=== PATIENT | female | born 1950 | race Caucasian/White ===

== ENCOUNTER → 2019-01-09 | Outpatient (CLI) | payer OTHER ==
[~2019-01-09] VITALS: Ht 147.3 cm; Wt 77.1 kg
[~2019-01-09] MED LIST: ALLOPURINOL 10100 M1 PO; AMOXICILLIN 50500 MG PO; CLARITIN10 MG PO; CONGESTI EAC PO; COQ-10100 MG PO; FISH OIL 1,001000 M2 PO; GARLIC1 EACH PO; LIPITOR10 MG PO; LISINOPRIL-HCT1 EACH PO; MUCINEX TA600 MG/TA2 PO; MULTI VITAMIN1 EACH PO; OMEPRAZOLE40 MG PO; PROAIR HFA8.5 GM INH
--- NOTE | 2019-01-10 13:07 | PATH ---
[facility] [address] [place] [address] PATHOLOGY RPT PROCEDURE Name: BISHOPNOAM DECEMBER Room #: REG Pilar M.Ines.#: [id number] ������������������ Admission: 01/09/19 ������������������ Date of : 52 Discharge: Report #: [id number] Path Case #: [id number] [facility] Accession Number: [id number] . 01 Material submitted: . cecum - POLYLP AT CECUM . 01 Clinical history: . Pre-OP DX: Hx: Polyps Post-OP DX: Colon polyp, diverticulosis, hemorrhoids . 02 Diagnosis: Polyp, at cecum, endoscopic biopsy: - Tubular adenoma. - Negative for high-grade dysplasia. (IUV:pit 01/10/2019) QTP/01/10/2019 . 02 Electronically signed: . Porsche Sepulveda MD, Pathologist NPI- [id number] . 01 Gross description: . Received in formalin labeled "Bishop, Noam, polyp at cecum," is a single segment of payne soft tissue measuring 0.8 cm in maximum dimension. The specimen is entirely submitted in cassette A1. (TSD; 01/09/2019) TOB/TOB . 02 Pathologist provided ICD-10: D12.0 . 02 CPT . 737959 Specimen Comment: A courtesy copy of this report has been sent to Specimen Comment: [phone]. Specimen Comment: Report sent to Performed at: [address] [id number] MD Aric Maria MD Phone: [phone] Performed at: [address] [id number] MD Porsche Sepulveda MD Phone: [phone]
--- NOTE | 2019-01-11 11:42 | P ---
[facility] [place] [address] PROCEDURE REPORT Name: NOAM TREJO Room #: REG [facility].#: [id number] Admission: 01/09/19 ������������������ Attend Phys: Joe Flanagan MD Discharge: ������������������ Date of : 52 Report #: [id number] THIS REPORT FOR: //name// CC: Joe Irvin MD DATE OF SERVICE: 01/09/2019 BRIEF HISTORY: The patient is a 68-year-old woman who presents for high-risk screening colonoscopy due to history of colon adenomas in the past. PREOPERATIVE DIAGNOSIS: High-risk screening colonoscopy. POSTOPERATIVE DIAGNOSES: 1. A 5-mm flat cecal polyp. 2. Moderately severe diverticulosis coli, left colon. 3. Small internal hemorrhoids. MEDICATIONS: Deep sedation with propofol per anesthesia. SPECIMEN: Cecal polyp. ESTIMATED BLOOD LOSS: 3 mL. PROCEDURE: Colonoscopy to cecum and terminal ileum with snare polypectomy. FINDINGS: Prior to propofol sedation, procedure of colonoscopy was reviewed with the patient as well as potential risks, benefits and complications. She indicates she understands and desires to proceed. DESCRIPTION OF PROCEDURE: With the patient in left lateral decubitus position, digital examination was completed, which revealed no abnormalities. Subsequently, the Olympus video colonoscope was inserted in the rectum, advanced under direct vision to the cecum. This was done with minimal difficulty. The cecum was identified by the ileocecal valve and the appendiceal orifice. I was also able to visualize the distal segment of the terminal ileum, which was inspected and noted to be unremarkable. At that point, the scope was slowly withdrawn and careful circumferential views obtained including retroflexing the scope in the ascending colon. Upon slow withdrawal of the scope, the prep was noted to be good. The mucosa was within normal limits, normal vascular pattern, normal light reflex. As we withdrew the scope, she was found to have a 5-mm flat polyp in the cecum that was removed by cold snare polypectomy and recovered. The scope was further withdrawn and no additional neoplastic lesions were seen on this examination. However, in the sigmoid colon, there was moderately severe diverticular disease without endoscopic evidence of [facility] [address] [place] [address] PROCEDURE REPORT Name: NOAM TREJO DECEMBER [facility] [id number] Admission: 01/09/19 ������������������ Attend Phys: Joe Flanagan MD Discharge: ������������������ Date of : 52 Report #: [id number] diverticulitis. The scope was withdrawn in the rectum. No abnormalities were seen until upon retroflexion, small internal hemorrhoids were seen. The scope was withdrawn. The patient tolerated the procedure well. CONDITION OF THE PATIENT UPON DISCHARGE: Following procedure, the patient drowsy, aroused, conversant and will be discharged home when fully ambulatory. INSTRUCTIONS TO THE PATIENT AND FAMILY AT THE TIME OF DISCHARGE: We will follow up on the path of the polyp. If this is an adenoma, which I suspect it is, she should return. If this is an adenoma as suspected, she should return for followup colon exam in five years. If it is a hyperplastic polyp, then she should return in 10 years. She will return to the care of Dr. Max Irvin. Last colonoscopy was approximately five years ago. Withdrawal time from the cecum was 11 minutes 5 seconds. The patient reports she got up off the sofa last evening when she was doing her prep. She somehow injured her ankle. It is not entirely clear what she did. She said her foot was asleep and when she got up, she fell. The ankle is noted to be swollen. This is the right ankle. We will reach out to Dr. Irvin as I think this needs to be examined and potentially x-ray today. ��������������������������������������������� <ELECTRONICALLY SIGNED> ���������������������������������������� By: Joe Flanagan MD ��������������������������������������������� 01/11/19 1142 [id number] 11 Joe Flanagan MD /nt
== END | disposition home or self-care (01) ==
LOC: GI 07:14
DX: Z12.11 Encounter for screening for malignant neoplasm of colon (principal); Z86.010 Personal history of colon polyps; D12.0 Benign neoplasm of cecum; K57.30 Diverticulosis of large intestine without perforation or abscess without bleeding; K64.8 Other hemorrhoids; I10 Essential (primary) hypertension; E78.5 Hyperlipidemia, unspecified; K21.9 Gastro-esophageal reflux disease without esophagitis; Z90.710 Acquired absence of both cervix and uterus; Z91.040 Latex allergy status; Z90.49 Acquired absence of other specified parts of digestive tract; Z98.890 Other specified postprocedural states; Z79.899 Other long term (current) drug therapy; Z88.8 Allergy status to other drugs, medicaments and biological substances
CPT/HCPCS: 62110; 62900

== ENCOUNTER → 2019-04-25 | Outpatient (CLI) | payer OTHER ==
[~2019-04-25] VITALS: Ht 144.8 cm; Wt 77.1 kg
[~2019-04-25] MED LIST changes: +GARLIC OIL1000 MG PO
--- NOTE | ~2019-04-25 | P ---
[facility] [place] [address] PROCEDURE REPORT Name: NOAM TREJO Room #: REG [facility] Phi.#: [id number] Admission: 04/25/19 Attend Phys: Joe Flanagan MD Discharge: Date of : 52 Report #: [id number] THIS REPORT FOR: //name// CC: Parminder Irvin DATE OF SERVICE: 04/25/2019 BRIEF HISTORY: The patient is a 69-year-old woman with history of Hay's esophagus for screening. PREOPERATIVE DIAGNOSIS: Hay's esophagus. POSTOPERATIVE DIAGNOSES: 1. A 4-cm segment of Hay's esophagus. 2. A 3-cm sliding type hiatus hernia. 3. Multiple benign appearing gastric polyps, likely secondary to chronic PPI therapy. 4. Chronic gastritis. MEDICATIONS: Deep sedation with propofol per anesthesia. SPECIMENS: 1. Biopsies of multiple gastric polyps. 2. Biopsy of esophagus, 30 cm. 3. Biopsy of esophagus at 28 cm. ESTIMATED BLOOD LOSS: 3 mL. PROCEDURE: EGD with biopsy. FINDINGS: Prior to propofol sedation, procedure of upper endoscopy discussed with the patient as well as potential risks, benefits, and complications. She indicates she understands and desires to proceed. DESCRIPTION OF PROCEDURE: With the patient in left lateral decubitus position, the Olympus video endoscope was inserted in the cervical esophagus under direct vision without difficulty. Examination of this organ through its entire length revealed normal mucosa in the proximal and mid esophagus; however, distally there was a 4 cm segment of Hay similar to previous descriptions. The squamocolumnar junction was very irregular at about 26 cm. Examination of the Hay's segment revealed that there were multiple large islands of squamous mucosa within the Hay's and thus, there was not full circumferential involvement of Hay. The top of the gastric folds was estimated to be about 30 cm. The Hay mucosa examined with white light as well as narrow banded [facility] [address] [place] [address] PROCEDURE REPORT Name: NOAM TREJO Room #: REG Pilar Yip.#: [id number] Admission: 04/25/19 Attend Phys: Joe Flanagan MD Discharge: Date of : 52 Report #: [id number] imaging and the mucosa was flat without evidence of masses, nodules, raised areas or erosions, ulcers or strictures. Multiple biopsies were obtained. The scope was advanced and she was noted to have a 3-cm sliding type hiatus hernia. Mucosa and hernia was unremarkable. Scope was advanced in the stomach, was examined on end view as well as retroflexed views. There was a diffuse gastritis distally, which has been previously noted. No ulcers or erosions were needed. Examination of the polyp, proximal stomach on end view as well as retroflexed views revealed intact mucosa. No evidence of mass lesion in the cardia. However, the patient was noted to have multiple polyps involving primarily the body of the stomach. These had the typical appearance of gastric polyps secondary to chronic PPI use. Just to be certain, multiple random biopsies were obtained. The polyps ranged in size from about 3 mm up to 10 mm. They all appeared benign. The pylorus was inspected and noted to be unremarkable. There is a prior history of pyloric stenosis, but there is no evidence of stenosis today and the scope passed easily through the pylorus. The duodenal bulb and postbulbar duodenal sweep were inspected and noted to be unremarkable. At that point, the scope was slowly withdrawn and careful circumferential views confirmed the above findings. The patient tolerated the procedure well. CONDITION OF THE PATIENT UPON DISCHARGE: Following procedure, the patient drowsy, aroused, conversant and will be discharged home when fully ambulatory. INSTRUCTIONS TO THE PATIENT AND FAMILY AT THE TIME OF DISCHARGE: We will follow up on biopsies obtained today. She should continue her PPI dose to control her symptoms of heartburn. If she can combine with omeprazole once daily that would be just fine. We will follow up on the pathology. If there is no dysplasia, she will return in 3 years. However, if dysplasia is present, she may require further intervention or evaluation or possible treatment. By: [id number] Joe Flanagan MD /jessica
--- NOTE | 2019-04-28 18:06 | PATH ---
[facility] [place] [address] PATHOLOGY RPT PROCEDURE Name: NOAM BISHOP DECEMBER Room #: REG JARED Yip.#: [id number] Admission: 04/25/19 Date of : 52 Discharge: Report #: [id number] Path Case #: [id number] [facility] Accession Number: [id number] . 01 Material submitted: . PART A: stomach - BIOPSY GASTRIC POLYPS ([facility] USE OF PPI) PART B: esophagus - BIOPSY BARRETTS ESOPHAGUS AT 30CM PART C: esophagus - BIOPSY BARRETTS ESOPHAGUS AT 28CM . 01 Clinical history: . Pre-OP DX: Hx Hay's esophagus Post-OP DX: Hiatal hernia, gastric polyps, Hay's esophagus . 02 Diagnosis: A. Polyps, gastric polyps, endoscopic biopsy: - Fundic gland polyps. - Negative for dysplasia. . B. 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 - Negative for dysplasia. - Focal squamous mucosa present showing mild esophagitis. . C. 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 - Negative for dysplasia. - Focal squamous mucosa present showing mild esophagitis. . 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 02 Electronically signed: . Porsche Sepulveda MD, Pathologist NPI- [id number] . 01 Gross description: . A. Received in formalin labeled "Noam Bishop BX gastric polyps, long-term use of PPI," are 5 segments of payne soft tissue measuring 1.4 x 0.9 x 0.3 cm in aggregate dimensions and ranging from 0.3 to 0.7 cm in maximum dimension. The specimen is submitted entirely in cassette A1. . B. 's Received in formalin labeled "Noam Bishop BX Hay's esophagus at 30 cm," are multiple segments of payne soft tissue measuring 1.5 x 0.[address] [address] PATHOLOGY RPT PROCEDURE Name: NOAM BISHOP DECEMBER Room #: REG JARED Schwartz#: [id number] Admission: 04/25/19 Date of : 52 Discharge: Report #: [id number] Path Case #: [id number] 0.1 cm in aggregate dimensions. The specimen is filtered and entirely submitted in cassette B1. . C. Received in formalin labeled "Noam Bishop, BX Hay's esophagus at 28 cm," are 5 segments of payne soft tissue measuring 1.5 x 1.1 x 0.3 cm in aggregate dimensions and ranging from 0.3 to 0.9 cm in maximum dimension. The specimen is submitted entirely in cassette C1. (TSD; 04/25/2019) TOB/TOB . 02 Pathologist provided ICD-10: K31.7, K22.70, K20.9 . 02 CPT . 224618, 997495, 128563 Specimen Comment: A courtesy copy of this report has been sent to Specimen Comment: [phone]. Specimen Comment: Report sent to ,DR ANDRE / DR HARTLEY Performed at: [address], [place] [id number] MD Aric Maria MD Phone: [phone] Performed at: [address] [id number] MD Porsche Sepulveda MD Phone: [phone]
== END | disposition home or self-care (01) ==
LOC: GI 08:35
DX: K29.50 Unspecified chronic gastritis without bleeding (principal); K31.7 Polyp of stomach and duodenum; K22.70 Barrett's esophagus without dysplasia; K20.9 Esophagitis, unspecified; K44.9 Diaphragmatic hernia without obstruction or gangrene; I10 Essential (primary) hypertension; E78.5 Hyperlipidemia, unspecified; K21.9 Gastro-esophageal reflux disease without esophagitis; Z90.710 Acquired absence of both cervix and uterus; Z90.49 Acquired absence of other specified parts of digestive tract; Z98.890 Other specified postprocedural states; Z79.899 Other long term (current) drug therapy; Z91.040 Latex allergy status; Z88.8 Allergy status to other drugs, medicaments and biological substances
CPT/HCPCS: 62110; 62900

== ENCOUNTER → 2021-05-13 | Outpatient (CLI) | payer OTHER | LOC: CAT 07:58 | PROVIDERS: ATTEND Neuromusculoskeletal Medicine & OMM | DX: Z13.6 Encounter for screening for cardiovascular disorders (principal); E78.00 Pure hypercholesterolemia, unspecified; I25.10 Atherosclerotic heart disease of native coronary artery without angina pectoris ==